=== PATIENT | male | born 1945 | race Caucasian/White ===

== ENCOUNTER 2022-11-28 20:04 | Emergency (ER) | payer OTHER ==
[2022-11-28 20:09] VITALS: BP 170/92; PULSE 68; RESP 17; TEMP 99.1
== END 2022-11-28 22:54 | disposition home or self-care (01) ==
LOC: ER 20:04
DX: J34.89 Other specified disorders of nose and nasal sinuses (principal)
CPT/HCPCS: 71045; 99283

== ENCOUNTER 2024-01-09 16:08 | Emergency (ER) | payer OTHER ==
[~2024-01-09] VITALS: Ht 177.8 cm; Wt 66.0 kg
[2024-01-09 16:20] VITALS: O2SAT 99
[2024-01-09 17:08] LABS: BASOPHILS % 0.7 % (0.0-2.0); DIFFERENTIAL COMMENT 0; EOSINOPHILS % 0.5 % (0.0-5.0); HEMATOCRIT. 39.4 % (42.0-52.0); HEMOGLOBIN. 13.8 g/dL (14.0-18.0); LYMPHOCYTES % 20.8 % (20.0-50.0); MEAN CORPUSCULAR HEMOGLOBIN 36.4 pg (28.0-32.0); MEAN CORPUSCULAR HGB CONC 34.9 g/dL (31.0-37.0); MEAN CORPUSCULAR VOLUME 104.1 fL (80.0-94.0); MEAN PLATELET VOLUME 10.1 fl (7.4-10.4); MONOCYTES % 8.1 % (2.0-8.0); NEUTROPHILS % 69.9 % (40.0-76.0); PLATELET 156 x1000/uL (130-400); RED BLOOD CELL COUNT 3.79 mill/uL (4.7-6.1); RED CELL DISTRIBUTION WIDTH 13.3 % (11.6-14.6); WHITE BLOOD COUNT 5.3 x1000/uL (4.5-11.0)
[2024-01-09 17:17] LABS: CARBON DIOXIDE 26 mEq/L (21-32); CHLORIDE 101 mEq/L (98-107); POTASSIUM 4.1 mEq/L (3.5-5.1); PROTHROMBIN TIME 11.3 sec (9.6-11.0); SODIUM 137 mEq/L (136-145)
[2024-01-09 17:18] LABS: CALCIUM 9.1 mg/dL (8.7-10.4)
[2024-01-09 17:22] LABS: CREATININE 0.9 mg/dL (0.6-1.3)
[2024-01-09 17:23] LABS: GLUCOSE 112 mg/dL (70-105); TROPONIN I HIGH SENSITIVITY 4 ng/L (3.0-53); UREA NITROGEN BLOOD 14 mg/dL (9-23)
[2024-01-09 17:24] LABS: ALANINE AMINOTRANSFERASE 17 IU/L (10-49); ALBUMIN 3.8 g/dL (3.2-4.8); ASPARTATE AMINOTRANSFERASE 35 IU/L (<34); LACTIC ACID 2.9 mmol/L (0.4-2.0)
[2024-01-09 17:25] LABS: BILIRUBIN DIRECT 0.1 mg/dL (<=3.0); BILIRUBIN TOTAL 0.5 mg/dL (0.1-1.0); PROTEIN TOTAL 6.4 g/dL (6.0-8.3)
[2024-01-09] MEDS ORDERED: SODIUM CHLORIDE 0.9% 1,000 ML IV NR (18:30)
[2024-01-09] MEDS: LACTULOSE 20G/30ML UDC PO NR (19:07)
[2024-01-09] MEDS: CEFTRIAXONE 1GM/50ML 50 ML IV NR (19:07)
[2024-01-09 20:07] LABS: TROPONIN I HIGH SENSITIVITY 4 ng/L (3.0-53)
[2024-01-09] MEDS ORDERED: ONDANSETRON HCL 4MG/2ML INJ IV PRN (21:00)
[2024-01-09] MEDS ORDERED: NITROGLYCERIN 0.4MG TABLET SL SL PRN (21:00)
[2024-01-09] MEDS ORDERED: ACETAMINOPHEN 325MG TABLET PO PRN ×2 (21:00)
[2024-01-09] MEDS ORDERED: GUAIFENESIN 200MG/10ML SUGAR FREE UDC PO PRN (21:00)
[2024-01-09] MEDS ORDERED: DOCUSATE SODIUM 100MG CAPSULE PO PRN (21:00)
[2024-01-09] MEDS ORDERED: MAGNESIUM/ALUMINUM HYDROXIDE/SIMETHICONE 30ML UDC PO PRN (21:00)
[2024-01-09] MEDS ORDERED: KETOROLAC 15MG/ML VIAL IV PRN (21:00)
[2024-01-09] MEDS ORDERED: ZOLPIDEM TARTRATE 5MG TABLET PO PRN (21:00)
[2024-01-09] MEDS ORDERED: IPRATROPIUM/ALBUTEROL 0.5-3(2.5)MG/3ML NEB NEB PRN (21:00)
[2024-01-09] MEDS ORDERED: CLONIDINE 0.1MG TABLET PO PRN (21:00)
[2024-01-09] MEDS: POLYETHYLENE GLYCOL 3350 (17GM) 1 DOSE PACK PO NR (21:10)
[2024-01-09] MEDS: NA PHOS,M-B/NA PHOS,DI-BA ENEMA 118ML PR ONE (21:11)
[2024-01-09] MEDS: FAMOTIDINE 20MG TABLET PO SCH (21:11)
[2024-01-09] MEDS: ENOXAPARIN 40MG/0.4ML SYR SUBCUT SCH (21:11)
[2024-01-09] MEDS: PIPERACILLIN/TAZO 3.375G/50ML 50 ML IV NR (21:11)
[2024-01-09] MEDS: LACTATED RINGERS 1,000 ML IV SCH (21:30)
[2024-01-09] MEDS: NA PHOS,M-B/NA PHOS,DI-BA ENEMA 118ML PR NR (22:00)
[2024-01-09 22:13] VITALS: BP 102/68; PULSE 88; RESP 15; TEMP 37.11408; O2SAT 98
[2024-01-09] MEDS ORDERED: IOHEXOL-300 100 ML BOTTLE ONE (23:34)
[2024-01-10] MEDS ORDERED: LACTULOSE 20G/30ML UDC PO SCH
[2024-01-10] MEDS ORDERED: PIPERACILLIN/TAZO 3.375G/50ML 50 ML IV SCH (06:00)
== END 2024-01-09 22:36 | disposition short-term general hospital (02) ==
LOC: ER 16:08
DX: K52.89 Other specified noninfective gastroenteritis and colitis (principal); K56.41 Fecal impaction; Z98.890 Other specified postprocedural states
CPT/HCPCS: 99285; 74177; 96365; 71045; 96367; 80076; 80048; 83605; 83690; 85025; 85610; 87040; 84484; 36415; 96372; Q9967; J0696; J1650; J2543